=== PATIENT | female | born 1975 | race Caucasian/White ===

== ENCOUNTER 2017-11-20 10:20 | Emergency (ER) | payer BC, MEDICAID ==
[2017-11-20 10:20] VITALS: BMI 36.3
[2017-11-20 10:27] VITALS: BP 125/88; PULSE 88; RESP 18; TEMP 98.9; O2SAT 98
[2017-11-20] MEDS ORDERED: Lidocaine 1% Inj (20ml) ONE (11:50)
--- NOTE | 2017-11-20 12:05 | C.PDOC ---
History Of Present Illness 42 year old female presents to ED for evaluation after sustaining laceration to right hand 4th digit from a broken cup few minutes prior to arrival. Denies any change in sensation, or any other associated symptoms at this time. Time Seen by Provider: 11/20/17 11:31 Chief Complaint (Nursing): Abnormal Skin Integrity History Per: Patient History/Exam Limitations: no limitations Onset/Duration Of Symptoms: Mins Current Symptoms Are (Timing): Still Present Location Of Injury: Right: Hand Recent travel outside of the [place]: No Additional History Per: Patient Past Medical History Reviewed: Historical Data, Nursing Documentation, Vital Signs Vital Signs: Last Vital Signs Temp 98.9 F 11/20/17 10:24 Pulse 88 11/20/17 10:24 Resp 18 11/20/17 10:24 BP 125/88 11/20/17 10:24 Pulse Ox 98 11/20/17 12:12 Family History: States: Unknown Family Hx - Social History Hx Tobacco Use: No Hx Alcohol Use: No Hx Substance Use: No - Immunization History Hx Tetanus Toxoid Vaccination: No Hx Influenza Vaccination: No Hx Pneumococcal Vaccination: No Review Of Systems Except As Marked, All Systems Reviewed And Found Negative. Constitutional: Negative for: Fever, Chills Skin: Positive for: Other (right 4th digit laceration). Negative for: Rash Neurological: Negative for: Weakness, Numbness Physical Exam - Physical Exam Appears: Non-toxic, No Acute Distress Skin: Warm, Dry, Other (1cm of superficial laceration to right 4th digit DIP joint with minimal bleeding) Head: Atraumatic, Normacephalic Eye(s): bilateral: Normal Inspection Extremity: Normal ROM (FROM of right hand digits), Capillary Refill (less than 2 seconds), No Deformity, No Swelling Pulses: Left Radial: Normal, Right Radial: Normal Neurological/Psych: Oriented x3, Normal Speech, Normal Motor, Normal Sensation ED Course And Treatment O2 Sat by Pulse Oximetry: 98 (RA) Pulse Ox Interpretation: Normal Progress Note: Laceration was repaired. Pt tolerated procedue well without any complications. Laceration - Laceration Repair right hand 4th digit Wound Length (In cm): 1 Description Of Wound: Linear Wound Cleansed With: Sterile Saline Anesthesia: Lidocaine 1% Wound Examination: Irrigated With Saline, No FB With Wound Exploration, No Tendon Injury With Wound Exploration Wound Closure: Suture (3) Suture Technique And Material Used: Prolene (4'0) Wound Complexity: Simple Disposition Counseled Patient/Family Regarding: Diagnosis, Need For Followup - Disposition Disposition: HOME/ ROUTINE Disposition Time: 12:24 Condition: STABLE Additional Instructions: Keep wound clean and dry Apply baitracin oint Return to ER if worse Instructions: Care For Your Stitches (ED) Forms: [employer] (Martiniquais) - Clinical Impression Clinical Impression: Finger laceration - PA / DIGITAL STRATEGIST / Resident Statement MD/DO has reviewed & agrees with the documentation as recorded. - Scribe Statement The provider has reviewed the documentation as recorded by the Scribe Kiah Camarena All medical record entries made by the Kavonibhans were at my direction and personally dictated by me. I have reviewed the chart and agree that the record accurately reflects my personal performance of the history, physical exam, medical decision making, and the department course for this patient. I have also personally directed, reviewed, and agree with the discharge instructions and disposition.
[2017-11-20] MEDS ORDERED: Bacitracin 500 Units/gm Oint Foilpak UD ONE (12:26)
== END 2017-11-20 12:37 | disposition home or self-care (01) ==
LOC: C.ER 10:20
DX: S61.214A Laceration without foreign body of right ring finger without damage to nail, initial encounter (principal); W25.XXXA Contact with sharp glass, initial encounter; Y92.89 Other specified places as the place of occurrence of the external cause